=== PATIENT | female | born 1975 | race African-American/Black ===

== ENCOUNTER 2023-06-29 09:39 | Day surgery (SDC) | payer OTHER ==
[2023-06-21 17:40] VITALS: BMI 30.2
[2023-06-29] MEDS ORDERED: MIDAZOLAM HCL 2 MG/2 ML SINGLE DOSE VIAL ONE ×2 (12:45→13:29)
[2023-06-29] MEDS ORDERED: PROPOFOL 20 ML ONE ×4 (12:46→16:32)
[2023-06-29] MEDS ORDERED: BUPIVACAINE HCL/PF 0.5% (5 MG/ML) 30 ML VIAL IJ ONE (13:29)
[2023-06-29] MEDS ORDERED: DEXAMETHASONE SOD PHOSPHATE/PF 10 MG/ML SDV ONE (13:30)
[2023-06-29] MEDS ORDERED: VANCOMYCIN 1,000 MG VIAL (RESTRICTED TO ID ONLY) ONE (13:46)
[2023-06-29] MEDS ORDERED: BUPIVACAINE HCL/PF 0.5% (5MG/ML) 10 ML VIAL ONE (14:15)
[2023-06-29] MEDS ORDERED: ceFAZolin SODIUM 1 GM VIAL ONE (14:34)
[2023-06-29] MEDS ORDERED: TRANEXAMIC ACID 1000 MG/10 ML VIAL ONE ×2 (14:37→16:50)
[2023-06-29] MEDS ORDERED: ACETAMINOPHEN INJECTION 100 ML IVPB ONE ×2 (15:08→17:32)
[2023-06-29] MEDS ORDERED: NEOSTIGMINE METHYLSULFATE 0.5 MG/1 ML - 10 ML MDV ONE (15:15)
[2023-06-29] MEDS ORDERED: ONDANSETRON 4 MG/2 ML VIAL ONE (15:28)
[2023-06-29] MEDS ORDERED: DEXAMETHASONE SOD PHOSPHATE 4 MG/1 ML VIAL ONE (15:28)
[2023-06-29] MEDS ORDERED: ONDANSETRON 4 MG/2 ML VIAL IVPUSH PRN ×2 (15:33→17:27)
[2023-06-29] MEDS ORDERED: BUPIVICAINE 0.25%/MORPH PF/KETOROLAC - 51ML DISP.SYRINGE IA ONE (15:39)
[2023-06-29] MEDS ORDERED: LACTATED RINGERS SOLUTION 1,000 ML IV SCH ×2 (15:45→17:30)
[2023-06-29] MEDS ORDERED: KETOROLAC TROMETHAMINE 30 MG/1 ML VIAL ONE (16:59)
[2023-06-29] MEDS ORDERED: MAGNESIUM HYDROX 2400MG/30ML ORAL SUSPENSION 30 ML CUP PO PRN (17:27)
[2023-06-29] MEDS ORDERED: MAG HYDROX/AL HYDROX/SIMETH 30 ML UNIT-DOSE CUP PO PRN (17:27)
[2023-06-29] MEDS ORDERED: oxyCODONE HCL 5 MG TABLET ONE (18:58)
[2023-06-29] MEDS: CEFAZOLIN SODIUM 2 GM in DEXTROSE 5%-WATER 100 ML IVPB SCH (21:17)
[2023-06-29 21:24] VITALS: RESP 18
[2023-06-29] MEDS: SENNOSIDES/DOCUSATE COMBO (SENNA PLUS) TABLET (UD) PO SCH (21:29)
[2023-06-29] MEDS: GABAPENTIN 300 MG CAPSULE PO SCH (21:30)
[2023-06-29] MEDS: oxyCODONE HCL 10 MG SUSTAINED ACTING TABLET PO SCH (21:31)
[2023-06-29] MEDS: ASPIRIN COATED 81 MG TABLET.EC PO SCH (21:40)
[2023-06-30] MEDS: oxyCODONE HCL 5 MG TABLET PO PRN ×2 (03:30→12:40)
[2023-06-30] MEDS ORDERED: ACETAMINOPHEN 1000 MG/100 ML BAG IVPB ONE (07:22)
[2023-06-30 07:54] LABS: HEMATOCRIT 38.6 % (32.4-45.2); HEMOGLOBIN 12.4 G/dL (10.7-15.3); MEAN CELL VOLUME 93.8 fl (80-96); MEAN PLT VOLUME 9.7 fl (7.5-11.1); PLATELET COUNT 322.9 10^3/uL (134-434); RBC 4.12 10^6/uL (3.60-5.2); RDW 14.2 % (11.6-15.6); WHITE BLOOD COUNT 10.9 10^3/uL (4.0-10.8)
[2023-06-30] MEDS: ACETAMINOPHEN 1000 MG/100 ML BAG IVPB ONE (08:17)
[2023-06-30] MEDS: PANTOPRAZOLE 40 MG TABLET PO SCH (08:18)
[2023-06-30] MEDS: SODIUM CHLORIDE 0.9% 500 ML INFUS.BAG IV ONE (08:19)
[2023-06-30 09:01] LABS: CALCIUM 8.8 mg/dl (8.5-10.1); CREATININE 0.9 mg/dl (0.6-1.3); POTASSIUM 4.6 mmol/L (3.5-5.1)
[2023-06-30 10:44] VITALS: BP 96/55; PULSE 72; TEMP 98.8
[2023-06-30] MEDS: MULTIVITAMINS (DAILY MVI) TABLET (FP) PO SCH (12:30)
== END 2023-06-30 15:30 | disposition home or self-care (01) ==
LOC: FASUSAT 09:39 → FM/S 18:57 → FASUSAT 06-30 15:30
PROVIDERS: ATTEND Internal Medicine
PROC: 8E0Y0CZ Robotic Assisted Procedure of Lower Extremity, Open Approach (ICD-10-PCS; 2023-06-29)
PROC: 0SRB0JA Replacement of Left Hip Joint with Synthetic Substitute, Uncemented, Open Approach (ICD-10-PCS; principal; 2023-06-29 15:02)
DX: M16.12 Unilateral primary osteoarthritis, left hip (principal)
CPT/HCPCS: 20985; 27130; C1776; S2900; 36415; 73502-TC-LT-FY; 80048; 81025; 85027; 94760; 97010-GP; 97116-GP; 97162-GP; C1889; J0131